=== PATIENT | female | born 1975 | race Caucasian/White ===

== ENCOUNTER 2020-01-16 07:48 | Day surgery (SDC) | payer OTHER ==
[~2020-01-16 07:48] MED LIST: Lactated Ringers 1,000 ML IV SCH
[2020-01-16] MEDS ORDERED: Midazolam 1 MG/ML 2 ML SDV ONE (08:13)
[2020-01-16] MEDS ORDERED: fentaNYL 100 MCG/2 ML SDV ONE (08:13)
[2020-01-16] MEDS ORDERED: Propofol 200 MG/20 ML SDV ONE (08:13)
--- NOTE | 2020-01-16 08:28 | PCM.PREANE ---
Preanesthetic Assessment - Anesthesia/Transfusion/Family Hx Anesthesia History: Prior Anesthesia Without Reaction Family History of Anesthesia Reaction: No Transfusion History: No Prior Transfusion(s) Intubation History: Unknown - Review of Systems General: No Symptoms Pulmonary: No Symptoms Cardiovascular: No Symptoms Gastrointestinal: No Symptoms Neurological: No Symptoms Other: Reports: None - Physical Assessment Height: 5 ft 3.25 in Weight: 69.853 kg ASA Class: 2 Mental Status: Alert & Oriented x3 Airway Class: Mallampati = 2 Dentition: Reports: Normal Dentition, Implants (x2 upper front) Thyro-Mental Finger Breadths: 3 Mouth Opening Finger Breadths: 3 ROM/Head Extension: Full Lungs: Clear to Auscultation, Normal Respiratory Effort Cardiovascular: Regular Rate, Regular Rhythm - Lab Values: Laboratory Last Values WBC 6.54 K/uL (4.0-11.0) 01/16/20 08:16 RBC 4.68 M/uL (4.30-5.90) 01/16/20 08:16 Hgb 12.3 g/dL (12.0-16.0) 01/16/20 08:16 Hct 39.0 % (36.0-46.0) 01/16/20 08:16 MCV 83.3 fL (80.0-98.0) 01/16/20 08:16 MCH 26.3 pg (27.0-32.0) L 01/16/20 08:16 MCHC 31.5 g/dL (31.0-37.0) 01/16/20 08:16 RDW Std Deviation 42.2 fl (28.0-62.0) 01/16/20 08:16 RDW Coeff of Kathleen 14 % (11.0-15.0) 01/16/20 08:16 Plt Count 254 K/uL (150-400) 01/16/20 08:16 MPV 9.30 fL (7.40-12.00) 01/16/20 08:16 Nucleated RBC % 0.0 /100WBC 01/16/20 08:16 Nucleated RBCs # 0 K/uL 01/16/20 08:16 - Allergies Allergies/Adverse Reactions: Allergies Allergy/AdvReac Type Severity Reaction Status Date / Time egg Allergy Abdominal Verified 01/12/20 12:59 Pain - Blood Blood Available: No - Anesthesia Plan Pre-Op Medication Ordered: None - Acknowledgements Anesthesia Type Planned: General Anesthesia Pt an Appropriate Candidate for the Planned Anesthesia: Yes Alternatives and Risks of Anesthesia Discussed w Pt/Guardian: Yes Pt/Guardian Understands and Agrees with Anesthesia Plan: Yes PreAnesthesia Questionnaire HEENT History: Reports: Other (See Below) Other HEENT History: wears glasses/contacts Cardiovascular History: Reports: Other (See Below) Other Cardiovascular History: had a Superficial blood clot in right leg- took aspirin for a period of time Genitourinary History: Reports: Other (See Below) (h/o UTI) 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: Musculoskeletal History: Reports: Fracture Other Musculoskeletal History: left foot Endocrine/Metabolic History: Reports: Diabetes, Gestational, Hypothyroidism - Past Surgical History Head Surgeries/Procedures: Reports: None HEENT Surgical History: Reports: Oral Surgery Other HEENT Surgeries/Procedures: has 2 dental implants GI Surgical History: Reports: Appendectomy Female Surgical History: Reports: Breast Biopsy, Section, Other (See Below) Other Female Surgeries/Procedures: x2, pelvic Laparoscopy Musculoskeletal Surgical History: Reports: ORIF Other Musculoskeletal Surgeries/Procedures:: Left foot- has 2 plates and screws - SUBSTANCE USE Tobacco Use Status *Q: Former Tobacco User Tobacco Use Within Last Twelve Months: Vaping Recreational Drug Use History: No - HOME MEDS Home Medications: Home Meds Levothyroxine [Synthroid] 50 mcg PO QAM 01/12/20 [History] - CURRENT (IN HOUSE) MEDS Current Meds: Current Medications Lactated Ringer's (Ringers, Lactated) 1,000 mls @ 125 mls/hr IV ASDIRECTED JONATHAN Discontinued Medications Fentanyl (Sublimaze) Confirm Administered Dose 100 mcg .ROUTE .STK-MED ONE Stop: 01/16/20 08:14 Midazolam HCl (Versed 1 Mg/Ml) Confirm Administered Dose 2 mg .ROUTE .STK-MED ONE Stop: 01/16/20 08:14 Propofol (Diprivan 20 Ml) Confirm Administered Dose 200 mg .ROUTE .STK-MED ONE Stop: 01/16/20 08:14
[2020-01-16] MEDS ORDERED: Sodium Chloride 0.9% 10 ML SDV IV PRN (08:40)
[2020-01-16] MEDS ORDERED: Sodium Chloride 0.9% 10 ML Syringe FLUSH PRN (08:40)
[2020-01-16] MEDS ORDERED: Sodium Chloride 0.9% 2.5 ML Syringe FLUSH PRN (08:40)
--- NOTE | 2020-01-16 08:48 | PCM.OPNOTE ---
- General Post-Op/Procedure Note Date of Surgery/Procedure: 01/16/20 Operative Procedure(s): Hysteroscopy D & C with removal of endometrial lesion. Endometrial ablation with Lorena Findings: EUA showed normal sized anteverted uterus Hysteroscopy showed small protusion from endometrium into the uterine cavity - appears like a fibroid but may be a polyp Pre Op Diagnosis: Abnormal uterine bleeding secondary to endometrial polyp Post-Op Diagnosis: Abnormal uterine bleeding , possible polyp or fibroid Anesthesia Technique: General ET Tube, General LMA Primary Surgeon: Brijesh Wagner Anesthesia Provider: Blanquita Scott Pathology: Endometrial currettings Endometrial Lesion Fluid Replacement, Intraop: 800 EBL in mLs: 20 Complications: None Condition: Good
[2020-01-16] MEDS ORDERED: Ondansetron 4 MG/2 ML SDV ONE (09:21)
[2020-01-16] MEDS ORDERED: Dexamethasone 4 MG/ML 5 ML MDV ONE (09:29)
[2020-01-16] MEDS ORDERED: Atropine 0.1 MG/ML 10 ML Syringe IVPUSH PRN ×2 (09:45)
[2020-01-16] MEDS ORDERED: Albuterol 0.083% 2.5 MG/3 ML Neb Soln NEB PRN (09:45)
[2020-01-16] MEDS ORDERED: Naloxone 0.4 MG/ML Syringe IVPUSH PRN (09:45)
[2020-01-16] MEDS ORDERED: EPINEPHrine 1:10,000 1 MG/10 ML Syringe IVPUSH PRN (09:45)
[2020-01-16] MEDS ORDERED: fentaNYL 100 MCG/2 ML SDV IVPUSH PRN (09:45)
[2020-01-16] MEDS ORDERED: 50% Dextrose in Water 50 ML Syringe IVPUSH PRN (09:45)
[2020-01-16] MEDS ORDERED: Ondansetron 4 MG/2 ML SDV IVPUSH PRN (09:46)
[2020-01-16] MEDS ORDERED: HYDROmorphone 2 MG/ML Syringe IVPUSH PRN (09:46)
[2020-01-16] MEDS ORDERED: Ketorolac 30 MG/ML SDV ONE (10:06)
[2020-01-16] MEDS ORDERED: Acetaminophen/HYDROcodone 325-5 MG Tab PO PRN (10:44)
--- NOTE | 2020-01-16 10:54 | PCM.POSTAN ---
POST ANESTHESIA ASSESSMENT - MENTAL STATUS Mental Status: Alert, Oriented - VITAL SIGNS Vital Signs: Last Vital Signs Temp 36.3 C 01/16/20 10:25 Pulse 69 01/16/20 10:50 Resp 10 L 01/16/20 10:50 BP 126/63 01/16/20 10:50 Pulse Ox 95 01/16/20 10:50 - RESPIRATORY Respiratory Status: Respiratory Rate WNL, Airway Patent, O2 Saturation Stable - CARDIOVASCULAR CV Status: Pulse Rate WNL, Blood Pressure Stable - GASTROINTESTINAL GI Status: No Symptoms - PAIN Pain Score: 0 - POST OP HYDRATION Hydration Status: Adequate & Stable - OBSERVATIONS Free Text/Narrative:: No anesthesia problems
--- NOTE | 2020-01-16 11:10 | PCM48HPAN ---
Post Anesthesia Note - EVALUATION WITHIN 48HRS OF ANESTHETIC Vital Signs in Normal Range: Yes Patient Participated in Evaluation: Yes Respiratory Function Stable: Yes Airway Patent: Yes Cardiovascular Function Stable: Yes Hydration Status Stable: Yes Pain Control Satisfactory: Yes Nausea and Vomiting Control Satisfactory: Yes Mental Status Recovered: Yes Vital Signs: Last Vital Signs Temp 36.3 C 01/16/20 10:25 Pulse 69 01/16/20 10:50 Resp 10 L 01/16/20 10:50 BP 126/63 01/16/20 10:50 Pulse Ox 95 01/16/20 10:50 - COMMENTS/OBSERVATIONS Free Text/Narrative:: No anesthesia problems
--- NOTE | 2020-01-19 08:26 | OR ---
SURGEON: DAPHNEY ZALDIVAR DATE OF PROCEDURE: 01/16/2020 PREOPERATIVE DIAGNOSES: A 44-year-old with abnormal uterine bleeding secondary to endometrial polyp. POSTOPERATIVE DIAGNOSES: A 44-year-old with abnormal uterine bleeding secondary to endometrial polyp. PROCEDURE: 1. Hysteroscopy. 2. D and C. 3. Removal of endometrial lesion with MyoSure. ESTIMATED BLOOD LOSS: 20 mL. INTRAVENOUS FLUID: 800. FLUID DEFICIT: 420 of normal saline. ANESTHESIA: General. NOTES AND FINDING: Normal-sized anteverted uterus. Hysteroscopy showed a polypoid versus fibroid lesion in the posterior wall of the uterus. DESCRIPTION OF PROCEDURE: The patient was taken to the operating room where general anesthesia was performed without difficulty. She was prepared and draped in the dorsal lithotomy position with Carter stirrups. A speculum was placed into the vagina to expose the cervix. The cervix was grasped with Allis clamp. The cervix was dilated to accommodate the MyoSure hysteroscope. Upon placing the MyoSure hysteroscope, a lesion was noted in the posterior wall of the uterus measuring about 2 cm. With MyoSure been inserted, the lesion was removed without difficulty. Then, the MyoSure was removed. Then, a fractional D and C was done without any difficulty. Fluid deficit was as above. The patient tolerated the procedure well. All instrument and pad counts were correct x2. JERRI / MAYURI /[id number] MTDMarina
== END 2020-01-16 12:40 | disposition home or self-care (01) ==
LOC: MW.SDS 07:48
PROVIDERS: ATTEND Obstetrics & Gynecology
DX: N84.0 Polyp of corpus uteri (principal); Z87.891 Personal history of nicotine dependence; Z91.012 Allergy to eggs
CPT/HCPCS: 36415; 58563; 84703; 85027; 88305; J0131; J1100; J1885; J2001; J2250; J2704; J3010; J7120; 00952; J2405

== ENCOUNTER 2020-05-14 11:25 | Emergency (ER) | payer BC, OTHER ==
[2020-05-14] MEDS ORDERED: Sodium Chloride 0.9% 2.5 ML Syringe FLUSH PRN (11:42)
[2020-05-14] MEDS ORDERED: Sodium Chloride 0.9% 10 ML Syringe FLUSH PRN (11:42)
[2020-05-14 12:14] LABS: BLOOD UREA NITROGEN,BUN 6 mg/dL (7.0-18.0); CARBON DIOXIDE,CO2 25.3 mmol/L (21.0-32.0); CHLORIDE,CL 100 mmol/L (98-107); GLUCOSE RANDOM 112 mg/dL (74-106); LIPASE 125 U/L (73-393); POTASSIUM,K 3.6 mmol/L (3.5-5.1); SODIUM,NA 135 mmol/L (136-145)
[2020-05-14] MEDS ORDERED: Ketorolac 30 MG/ML SDV IVPUSH ONE (12:14)
[2020-05-14] MEDS ORDERED: Ondansetron 4 MG/2 ML SDV IVPUSH ONE (12:14)
[2020-05-14] MEDS ORDERED: Sodium Chloride 0.9% 1,000 ML IV ONE (12:16)
--- NOTE | 2020-05-14 12:22 | EDM.PDOC ---
ED HPI GENERAL MEDICAL PROBLEM - General Chief Complaint: Abdominal Pain Stated Complaint: STOMACH/LEFT PAIN Time Seen by Provider: 05/14/20 11:26 Source of Information: Reports: Patient History Limitations: Reports: No Limitations - History of Present Illness INITIAL COMMENTS - FREE TEXT/NARRATIVE: HISTORY AND PHYSICAL: History of present illness: Patient is a 44-year-old female presenting to the emergency room with left-sided abdominal/flank pain x2 days. Patient states that the pain is worse with taking a deep breath and sitting up. She describes it as stabbing/cramping. Patient also reports intermittent nausea with the pain. She reports taking 800 mg of [id number] ibuprofen last night that helped. Patient's history significant for hyperthyroidism for which she takes levothyroxine. Patient surgical history is significant for endometrial ablation and polyp removal in January 2020, appendectomy at age 18, ovarian torsion, 20 years ago, 2x section. Patient denies fever, chills, chest pain, shortness of breath, or cough. Denies headache, neck stiff ness, change in vision, syncope, or near syncope. Denies nausea, vomiting, diarrhea, constipation, or dysuria. Has not noted any blood in urine or stool. Review of systems: As per history of present illness and below otherwise all systems reviewed and negative. Past medical history: As per history of present illness and as reviewed below otherwise noncontributory. Surgical history: As per history of present illness and as reviewed below otherwise noncontributory. Social history: See social history for further information Family history: As per history of present illness and as reviewed below otherwise noncontributory. Physical exam: General: Patient is alert, oriented, and in no acute distress. Patient laying comfortably on exam table. Vitals stable and reviewed by me. Lungs: Clear to auscultation, breath sounds equal bilaterally, chest nontender. Heart: S1S2, regular rate and rhythm without overt murmur Abdomen: Mild generalized abdominal tenderness with slight increase in discomfort of the left sided abdomen and into the left flank without guarding, negative rebound, negative Caballero sign. Otherwise, soft, nondistended. Negative for masses or hepatosplenomegaly. Negative for costovertebral tenderness. Genitourinary: Deferred. Rectal: Deferred. Skin: Intact, warm, dry. No lesions or rashes noted. Extremities: Atraumatic, negative for cords or calf pain. Neurovascular unremarkable. Neuro: Awake, alert, oriented. Cranial nerves II through XII unremarkable. Cerebellum unremarkable. Motor and sensory unremarkable throughout. Exam nonfocal. Notes: Upon reexamination of patient, she is comfortable on exam and vitally stable. Admission for observation offered to patient but she declines at this time. Signs and symptoms that would prompt return to the ED thoroughly discussed with patient. Discussed the importance for follow up with a primary care provider. Voices understanding and is agreeable to plan of care. Denies any further questions or concerns at this time. Diagnostics: EKG, CBC, CMP, UA, Serum hcg, Lipase, Trop, CXR, Abd/pelvic w/w/o cont, Therapeutics: NS, Zofran, Toradol Prescription: Stool studies/collection supplies (Ova and Parasite, Cdiff tox, Culture/Shiga), Flagyl, Ciprofloxacin Impression: Colitis, unspecified Plan: 1. Take medication as prescribed. You can alternate ibuprofen and Tylenol as directed for pain and discomfort. 2. Follow up with a primary care provider as discussed. Return to the ED as needed and as discussed. 3. You have been provided with stool collection supplies. Once you are able to leave a stool sample at home, you can return this to our lab for further diagnostics. Definitive disposition and diagnosis as appropriate pending reevaluation and review of above. abdomen Pain Score (Numeric/FACES): 7 - Related Data Allergies Allergy/AdvReac Type Severity Reaction Status Date / Time egg Allergy Abdominal Verified 05/14/20 11:40 Pain Home Meds: Home Meds Levothyroxine [Synthroid] 50 mcg PO QAM 01/12/20 [History] Acetaminophen/HYDROcodone [[place] 325-5 MG] 1 tab PO Q6H PRN #8 tablet 05/14/20 [Rx] Ciprofloxacin [Ciprofloxacin HCl] 500 mg PO BID 7 Days #14 tab 05/14/20 [Rx] metroNIDAZOLE [Flagyl] 500 mg PO TID 7 Days #21 tab 05/14/20 [Rx] Past Medical History HEENT History: Reports: Other (See Below) Other HEENT History: wears glasses/contacts Cardiovascular History: Reports: Other (See Below) Other Cardiovascular History: had a Superficial blood clot in right leg- took aspirin for a period of time Genitourinary History: Reports: Other (See Below) (h/o UTI) 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: Musculoskeletal History: Reports: Fracture Other Musculoskeletal History: left foot Endocrine/Metabolic History: Reports: Diabetes, Gestational, Hypothyroidism - Past Surgical History Head Surgeries/Procedures: Reports: None HEENT Surgical History: Reports: Oral Surgery Other HEENT Surgeries/Procedures: has 2 dental implants GI Surgical History: Reports: Appendectomy Female Surgical History: Reports: Breast Biopsy, Section, Other (See Below) Other Female Surgeries/Procedures: x2, pelvic Laparoscopy Musculoskeletal Surgical History: Reports: ORIF Other Musculoskeletal Surgeries/Procedures:: Left foot- has 2 plates and screws ED ROS GENERAL - Review of Systems Review Of Systems: Comprehensive ROS is negative, except as noted in HPI. ED EXAM, GENERAL - Physical Exam Exam: See Below (see dictation) Course - Vital Signs Last Recorded V/S: Last Vital Signs Temp 97.2 F 05/14/20 11:29 Pulse 76 05/14/20 14:37 Resp 16 05/14/20 14:37 BP 110/62 05/14/20 14:37 Pulse Ox 99 05/14/20 14:37 - Orders/Labs/Meds Orders: Active Orders 24 hr Category Date Time Status Saline Lock Insert [OM.PC] Stat Oth 05/14/20 11:42 Ordered Labs: Laboratory Tests 05/14/20 05/14/20 05/14/20 Range/Units 11:38 11:38 11:38 WBC 11.29 H (4.0-11.0) K/uL RBC 4.93 (4.30-5.90) M/uL Hgb 13.7 (12.0-16.0) g/dL Hct 42.3 (36.0-46.0) % MCV 85.8 (80.0-98.0) fL MCH 27.8 (27.0-32.0) pg MCHC 32.4 (31.0-37.0) g/dL RDW Std Deviation 49.6 (28.0-62.0) fl RDW Coeff of Kathleen 16 H (11.0-15.0) % Plt Count 215 (150-400) K/uL MPV 9.50 (7.40-12.00) fL Neut % (Auto) 77.5 (48.0-80.0) % Lymph % (Auto) 13.5 L (16.0-40.0) % Price % (Auto) 8.2 (0.0-15.0) % Eos % (Auto) 0.6 (0.0-7.0) % Baso % (Auto) 0.2 (0.0-1.5) % Neut # (Auto) 8.8 H (1.4-5.7) K/uL Lymph # (Auto) 1.5 (0.6-2.4) K/uL Price # (Auto) 0.9 H (0.0-0.8) K/uL Eos # (Auto) 0.1 (0.0-0.7) K/uL Baso # (Auto) 0.0 (0.0-0.1) K/uL Nucleated RBC % 0.0 /100WBC Nucleated RBCs # 0 K/uL Sodium 135 L (136-145) mmol/L Potassium 3.6 (3.5-5.1) mmol/L Chloride 100 (98-107) mmol/L Carbon Dioxide 25.3 (21.0-32.0) mmol/L BUN 6 L (7.0-18.0) mg/dL Creatinine 0.9 (0.6-1.0) mg/dL Est Cr Clr Drug Dosing 68.88 mL/min Estimated GFR (MDRD) > 60.0 ml/min Glucose 112 H (74-106) mg/dL Calcium 8.4 L (8.5-10.1) mg/dL Total Bilirubin 0.5 (0.2-1.0) mg/dL AST 13 L (15-37) IU/L ALT 19 (14-63) IU/L Alkaline Phosphatase 47 (46-116) U/L Troponin I < 0.050 (0.000-0.056) ng/mL Total Protein 7.2 (6.4-8.2) g/dL Albumin 3.5 (3.4-5.0) g/dL Globulin 3.7 (2.6-4.0) g/dL Albumin/Globulin Ratio 0.9 (0.9-1.6) Lipase 125 (73-393) U/L HCG, Qual NEGATIVE (NEG) Urine Color Urine Appearance Urine pH (5.0-8.0) Ur Specific [place] (1.001-1.035) Urine Protein (NEGATIVE) mg/dL Urine Glucose (UA) (NEGATIVE) mg/dL Urine Ketones (NEGATIVE) mg/dL Urine Occult Blood (NEGATIVE) Urine Nitrite (NEGATIVE) Urine Bilirubin (NEGATIVE) Urine Urobilinogen (<2.0) EU/dL Ur Leukocyte Esterase (NEGATIVE) 05/14/20 Range/Units 12:23 WBC (4.0-11.0) K/uL RBC (4.30-5.90) M/uL Hgb (12.0-16.0) g/dL Hct (36.0-46.0) % MCV (80.0-98.0) fL MCH (27.0-32.0) pg MCHC (31.0-37.0) g/dL RDW Std Deviation (28.0-62.0) fl RDW Coeff of Kathleen (11.0-15.0) % Plt Count (150-400) K/uL MPV (7.40-12.00) fL Neut % (Auto) (48.0-80.0) % Lymph % (Auto) (16.0-40.0) % Price % (Auto) (0.0-15.0) % Eos % (Auto) (0.0-7.0) % Baso % (Auto) (0.0-1.5) % Neut # (Auto) (1.4-5.7) K/uL Lymph # (Auto) (0.6-2.4) K/uL Price # (Auto) (0.0-0.8) K/uL Eos # (Auto) (0.0-0.7) K/uL Baso # (Auto) (0.0-0.1) K/uL Nucleated RBC % /100WBC Nucleated RBCs # K/uL Sodium (136-145) mmol/L Potassium (3.5-5.1) mmol/L Chloride (98-107) mmol/L Carbon Dioxide (21.0-32.0) mmol/L BUN (7.0-18.0) mg/dL Creatinine (0.6-1.0) mg/dL Est Cr Clr Drug Dosing mL/min Estimated GFR (MDRD) ml/min Glucose (74-106) mg/dL Calcium (8.5-10.1) mg/dL Total Bilirubin (0.2-1.0) mg/dL AST (15-37) IU/L ALT (14-63) IU/L Alkaline Phosphatase (46-116) U/L Troponin I (0.000-0.056) ng/mL Total Protein (6.4-8.2) g/dL Albumin (3.4-5.0) g/dL Globulin (2.6-4.0) g/dL Albumin/Globulin Ratio (0.9-1.6) Lipase (73-393) U/L HCG, Qual (NEG) Urine Color YELLOW Urine Appearance CLEAR Urine pH 7.0 (5.0-8.0) Ur Specific [place] <= 1.005 (1.001-1.035) Urine Protein NEGATIVE (NEGATIVE) mg/dL Urine Glucose (UA) NEGATIVE (NEGATIVE) mg/dL Urine Ketones TRACE H (NEGATIVE) mg/dL Urine Occult Blood NEGATIVE (NEGATIVE) Urine Nitrite NEGATIVE (NEGATIVE) Urine Bilirubin NEGATIVE (NEGATIVE) Urine Urobilinogen 0.2 (<2.0) EU/dL Ur Leukocyte Esterase NEGATIVE (NEGATIVE) Meds: Medications Discontinued Medications Generic Name Dose Route Start Last Admin Trade Name Freq PRN Reason Stop Dose Admin Sodium Chloride 1,000 mls @ 999 mls/hr 05/14/20 12:16 05/14/20 12:27 Normal Saline IV 05/14/20 13:16 999 mls/hr STAT ONE Administration Iopamidol 100 ml 05/14/20 13:15 05/14/20 13:16 Isovue Multipack-370 (76%) IVPUSH 05/14/20 13:16 100 ml ONETIME ONE Administration Ketorolac Tromethamine 30 mg 05/14/20 12:14 05/14/20 12:27 Toradol IVPUSH 05/14/20 12:15 30 mg ONETIME ONE Administration Ondansetron HCl 4 mg 05/14/20 12:14 05/14/20 12:27 Zofran IVPUSH 05/14/20 12:15 4 mg ONETIME ONE Administration Sodium Chloride 10 ml 05/14/20 11:42 05/14/20 12:28 Saline Flush FLUSH 10 ml ASDIRECTED PRN Administration Keep Vein Open Sodium Chloride 2.5 ml 05/14/20 11:42 05/14/20 12:28 Saline Flush FLUSH 2.5 ml ASDIRECTED PRN Administration Keep Vein Open Departure - Departure Time of Disposition: 10:32 Disposition: Home, Self-Care 01 Clinical Impression: Colitis - Discharge Information Prescriptions: Ciprofloxacin [Ciprofloxacin HCl] 500 mg PO BID 7 Days #14 tab metroNIDAZOLE [Flagyl] 500 mg PO TID 7 Days #21 tab Acetaminophen/HYDROcodone [[place] 325-5 MG] 1 tab PO Q6H PRN #8 tablet PRN Reason: Pain (Severe 7-10) Instructions: Colitis Referrals: Rosa Walker MD [Primary Care Provider] - Forms: ED Department Discharge Additional Instructions: The following information is given to patients seen in the emergency department who are being discharged to home. This information is to outline your options for follow-up care. We provide all patients seen in our emergency department with a follow-up referral. The need for follow-up, as well as the timing and circumstances, are variable depending upon the specifics of your emergency department visit. If you don't have a primary care physician on staff, we will provide you with a referral. We always advise you to contact your personal physician following an emergency department visit to inform them of the circumstance of the visit and for follow-up with them and/or the need for any referrals to a consulting specialist. The emergency department will also refer you to a specialist when appropriate. This referral assures that you have the opportunity for follow-up care with a specialist. All of these measure are taken in an effort to provide you with optimal care, which includes your follow-up. Under all circumstances we always encourage you to contact your private phys ician who remains a resource for coordinating your care. When calling for follow-up care, please make the office aware that this follow-up is from your recent emergency room visit. If for any reason you are refused follow-up, please contact the [facility] Emergency Department at and asked to speak to the emergency department charge nurse. [facility] [address] [place] [id number] [address] [id number] 1. Take medication as prescribed. You can alternate ibuprofen and Tylenol as directed for pain and discomfort. 2. Follow up with a primary care provider as discussed. Return to the ED as needed and as discussed. 3. You have been provided with stool collection supplies. Once you are able to leave a stool sample at home, you can return this to our lab for further diagnostics. Sepsis Event Note (ED) - Evaluation Sepsis Screening Result: No Definite Risk - My Orders Last 24 Hours: My Active Orders 05/14/20 11:42 Saline Lock Insert [OM.PC] Stat - Assessment/Plan Last 24 Hours: My Active Orders 05/14/20 11:42 Saline Lock Insert [OM.PC] Stat
--- NOTE | 2020-05-14 12:55 | CR ---
INDICATION: Pain/shortness of breath. TECHNIQUE: Chest 1 view. COMPARISON: None. FINDINGS: No focal consolidation, pleural effusion, or pneumothorax. Normal heart size and pulmonary vascularity. The bones are unremarkable. IMPRESSION: No acute cardiopulmonary findings. Dictated by Elizabeth Santana MD @ May 14 2020 12:53PM Signed by Dr. Elizabeth Santana @ May 14 2020 12:54PM
[2020-05-14] MEDS ORDERED: Iopamidol 755 MG/ML 500 ML Multipack Bottle IVPUSH ONE (13:15)
--- NOTE | 2020-05-14 13:39 | CT ---
Indication : Left flank pain and abdominal pain Technique: Volumetric multidetector CT images of the abdomen and pelvis were obtained before and after the administration of intravenous contrast. 100 cc Isovue 370 low osmolar intravenous contrast Comparison: None available. Findings: There is minimal basilar atelectasis versus scar. The liver is normal in attenuation without intrahepatic biliary ductal dilatation. The portal vein is patent. The gallbladder is unremarkable without evidence of radiopaque calculus. There is no significant common biliary ductal dilatation or abrupt cut off. The spleen is normal in enhancement and size. The stomach and duodenum are grossly unremarkable. The pancreas is normal in enhancement without significant atrophy. The adrenal glands are unremarkable. The kidneys demonstrate preserved corticomedullary differentiation without evidence of obstructive uropathy. There is moderate stool seen throughout the colon with demonstration of focal segmental thickening and pericolonic inflammatory change of the splenic flexure likely representing mild colitis changes. The appendix is not well visualized. There is no significant mesenteric, retroperitoneal, or pelvic sidewall lymph nodes. The aorta is nonaneurysmal. There is no significant atherosclerotic disease appreciated. There is an involuting left ovarian follicle and minimal physiologic fluid within the pelvis. There is no free fluid or free air. There is a small fat containing umbilical hernia. The lumbar vertebral body heights are grossly maintained in satisfactory alignment without evidence of displaced fracture, lytic or blastic lesion. Impression: Demonstration of focal segmental thickening and pericolonic inflammation of the transverse colon at the splenic flexure consistent with colitis. No evidence of radiopaque calculus or distal obstructive uropathy. There are additional scattered air-fluid levels within the small bowel which could represent mild enteritis changes. Please note that all CT scans at this facility use dose modulation, iterative reconstruction, and/or weight-based dosing when appropriate to reduce radiation dose to as low as reasonably achievable. Dictated by Brandon Kidd MD @ May 14 2020 1:25PM Signed by Dr. Brandon Kidd @ May 14 2020 1:39PM
--- NOTE | 2020-05-15 18:37 | PCM.EKG ---
#1 Interpretation EKG Date: 05/14/20 Time: 12:12 Rhythm: NSR Rate (Beats/Min): 81 [place]: Normal P-Wave: Present QRS: Normal ST-T: Normal QT: Normal Comparison: NA - No Prior EKG (Sinus Rhythm)
== END 2020-05-14 14:40 | disposition home or self-care (01) ==
LOC: MW.ED 11:25
DX: K52.9 Noninfective gastroenteritis and colitis, unspecified (principal); E03.9 Hypothyroidism, unspecified; Z91.012 Allergy to eggs; Z79.899 Other long term (current) drug therapy
CPT/HCPCS: 71045; 74178; 80053; 81003; 83690; 84484; 84703; 85025; 93005; 96374; 96375; 99284; J1885; J2405; J7030; Q9967; 93010

== ENCOUNTER 2020-07-22 06:22 | Day surgery (SDC) | payer BC ==
[~2020-07-22 06:22] MED LIST changes: +Sodium Chloride 0.9% 10 ML SDV IV PRN; +Sodium Chloride 0.9% 10 ML Syringe FLUSH PRN; +Sodium Chloride 0.9% 2.5 ML Syringe FLUSH PRN
[2020-07-22] MEDS ORDERED: Propofol 200 MG/20 ML SDV ONE (06:56)
--- NOTE | 2020-07-22 07:11 | PCM.PREANE ---
Preanesthetic Assessment - Anesthesia/Transfusion/Family Hx Anesthesia History: Prior Anesthesia Without Reaction Family History of Anesthesia Reaction: No Transfusion History: No Prior Transfusion(s) Intubation History: Unknown - Review of Systems General: No Symptoms Pulmonary: No Symptoms Cardiovascular: No Symptoms Gastrointestinal: No Symptoms Neurological: No Symptoms Other: Reports: None - Physical Assessment NPO Status Date: 07/22/20 NPO Status Time: 00:01 Vital Signs: Last Vital Signs Temp 97.3 F 07/22/20 06:48 Pulse 78 07/22/20 06:48 Resp 16 07/22/20 06:48 BP 103/55 L 07/22/20 06:48 Pulse Ox 98 07/22/20 06:48 Height: 5 ft 4 in Weight: 150 lb ASA Class: 1 Mental Status: Alert & Oriented x3 Airway Class: Mallampati = 2 Dentition: Reports: Normal Dentition, Implants ROM/Head Extension: Full Lungs: Clear to Auscultation, Normal Respiratory Effort Cardiovascular: Regular Rate, Regular Rhythm - Lab Values: Laboratory Last Values Urine HCG, Qual NEGATIVE (NEGATIVE) 07/22/20 06:45 - Allergies Allergies/Adverse Reactions: Allergies Allergy/AdvReac Type Severity Reaction Status Date / Time egg Allergy Abdominal Verified 07/22/20 07:03 Pain - Anesthesia Plan Pre-Op Medication Ordered: None - Acknowledgements Anesthesia Type Planned: General Anesthesia Pt an Appropriate Candidate for the Planned Anesthesia: Yes Alternatives and Risks of Anesthesia Discussed w Pt/Guardian: Yes Additional Comments: npo no cv problems tob none etoh occ par no questions bmi 26 upper incisor implants PreAnesthesia Questionnaire HEENT History: Reports: Other (See Below) Other HEENT History: wears glasses/contacts Cardiovascular History: Reports: Other (See Below) Other Cardiovascular History: had a Superficial blood clot in right leg- took aspirin for a period of time Respiratory History: Reports: None Gastrointestinal History: Reports: Chronic Constipation, Other (See Below) Other Gastrointestinal History: hx of colitis, currently having abd pain Genitourinary History: Reports: None [employer]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: Musculoskeletal History: Reports: Fracture Other Musculoskeletal History: left foot Neurological History: Reports: None Psychiatric History: Reports: None Endocrine/Metabolic History: Reports: Diabetes, Gestational, Hypothyroidism Hematologic History: Reports: None Immunologic History: Reports: None Oncologic (Cancer) History: Reports: None Dermatologic History: Reports: None - Infectious Disease History Infectious Disease History: Reports: Chicken Pox - Past Surgical History Head Surgeries/Procedures: Reports: None HEENT Surgical History: Reports: Oral Surgery Other HEENT Surgeries/Procedures: has 2 dental implants GI Surgical History: Reports: Appendectomy Female Surgical History: Reports: Breast Biopsy, Section, Cystect irish, Endometrial Ablation, Other (See Below) Other Female Surgeries/Procedures: x2, pelvic Laparoscopy Endocrine Surgical History: Reports: None Neurological Surgical History: Reports: None Musculoskeletal Surgical History: Reports: ORIF Other Musculoskeletal Surgeries/Procedures:: Left foot- has 2 plates and screws - SUBSTANCE USE Tobacco Use Status *Q: Current Every Day Tobacco User Tobacco Use Within Last Twelve Months: Vaping Recreational Drug Use History: No - HOME MEDS Home Medications: Home Meds Levothyroxine [Synthroid] 50 mcg PO QAM 01/12/20 [History] L.acidoph,Paracasei, B.lactis [Probiotic] 1 cap PO DAILY 07/16/20 [History] - CURRENT (IN HOUSE) MEDS Current Meds: Current Medications Lactated Ringer's (Ringers, Lactated) 1,000 mls @ 125 mls/hr IV ASDIRECTED JONATHAN Last Admin: 07/22/20 06:57 Dose: 125 mls/hr Documented by: Sodium Chloride (Sodium Chloride 0.9% 10 Ml Syringe) 10 ml FLUSH ASDIRECTED PRN PRN Reason: Keep Vein Open Sodium Chloride (Sodium Chloride 0.9% 2.5 Ml Syringe) 2.5 ml FLUSH ASDIRECTED PRN PRN Reason: Keep Vein Open Sodium Chloride (Sodium Chloride 0.9% 10 Ml Syringe) 10 ml FLUSH ASDIRECTED PRN PRN Reason: Keep Vein Open Sodium Chloride (Sodium Chloride 0.9% 2.5 Ml Syringe) 2.5 ml FLUSH ASDIRECTED PRN PRN Reason: Keep Vein Open Sodium Chloride (Sodium Chloride 0.9% 10 Ml Sdv) 10 ml IV ASDIRECTED PRN PRN Reason: IV Use Discontinued Medications Propofol (Propofol 200 Mg/20 Ml Sdv) Confirm Administered Dose 400 mg .ROUTE .STK-MED ONE Stop: 07/22/20 06:57
--- NOTE | 2020-07-22 08:54 | PCM.OPNOTE ---
- General Post-Op/Procedure Note Date of Surgery/Procedure: 07/22/20 Operative Procedure(s): Diagnostic EGD and colonoscopy Findings: Normal appearing EGD and colonoscopy Pre Op Diagnosis: Colitis and non-specific small intestine thickening Post-Op Diagnosis: same Anesthesia Technique: MAC Primary Surgeon: Mary Tim Condition: Good
--- NOTE | 2020-07-22 09:10 | PCM.POSTAN ---
POST ANESTHESIA ASSESSMENT - MENTAL STATUS Mental Status: Alert (no anesthetic problems), Oriented - VITAL SIGNS Vital Signs: Last Vital Signs Temp 97.3 F 07/22/20 06:48 Pulse 53 L 07/22/20 09:03 Resp 14 07/22/20 09:03 BP 102/63 07/22/20 09:03 Pulse Ox 100 07/22/20 09:03 - RESPIRATORY Respiratory Status: Respiratory Rate WNL, Airway Patent, O2 Saturation Stable - CARDIOVASCULAR CV Status: Pulse Rate WNL, Blood Pressure Stable - GASTROINTESTINAL GI Status: No Symptoms - POST OP HYDRATION Hydration Status: Adequate & Stable
--- NOTE | 2020-07-22 09:17 | PCM48HPAN ---
Post Anesthesia Note - EVALUATION WITHIN 48HRS OF ANESTHETIC Vital Signs in Normal Range: Yes Patient Participated in Evaluation: Yes Respiratory Function Stable: Yes Airway Patent: Yes Cardiovascular Function Stable: Yes Hydration Status Stable: Yes Pain Control Satisfactory: Yes Nausea and Vomiting Control Satisfactory: Yes Mental Status Recovered: Yes Vital Signs: Last Vital Signs Temp 97.3 F 07/22/20 06:48 Pulse 53 L 07/22/20 09:03 Resp 14 07/22/20 09:03 BP 102/63 07/22/20 09:03 Pulse Ox 100 07/22/20 09:03
--- NOTE | 2020-07-23 19:49 | OR ---
SURGEON: CEDRICK SEGURA MD DATE OF PROCEDURE: 07/22/2020 PREOPERATIVE DIAGNOSES: The patient is a 45-year-old female who presented to my clinic with colitis. She was diagnosed at the end of May. Her scan showed mild inflammation along the splenic flexure. She was also noted to have diverticulosis. She came to see me in clinic for followup and had recurrent symptoms. A repeat CT scan was performed. This showed nonspecific thickening of the distal duodenum and proximal ileum along the upper abdomen. The patient recently underwent a small- bowel follow-through, which was normal other than some mild reflux. The patient developed abdominal cramping after the small bowel procedure. Today, she is feeling back to normal. I explained the need for diagnostic esophagogastroduodenoscopy and colonoscopy. I explained the procedure, expected perioperative course, and risks. The patient verbalized understanding and wishes to proceed. PROCEDURE IN DETAIL: The patient was brought to the endoscopy suite and placed in a left lateral decubitus position. A time-out was completed verifying the patient's name, age, date of , allergies, and procedure to be performed. A bite block was placed in the patient's mouth. Monitored anesthesia care was induced and continuous oxygen was provided via nasal cannula throughout the procedure. After adequate sedation was achieved, a well-lubricated endoscope was placed in the patient's mouth and advanced under direct visualization to the level of the second portion of duodenum. This appeared normal. A photograph taken. The scope was then fully withdrawn while examining the color, texture, anatomy, and integrity mucosa of the upper GI tract. The duodenum appeared normal. Biopsies were taken within the duodenal bulb and sent to Pathology, labeled as duodenal biopsy. The scope was brought into the stomach, and a photograph taken of the pylorus and GE junction. Both appeared anatomically normal. There was no evidence of gross ulceration or inflammation of the stomach. Biopsies were taken of the gastric antrum, body, and fundus and sent for histologic review and H. pylori testing. The scope was brought into the distal esophagus. This appeared normal, and a photograph was taken. Biopsy was taken 1 cm above the normal-appearing Z-line and sent to Pathology, labeled as esophagus. The remainder of the esophagus was free of pathology. The scope was removed, and this portion of procedure terminated. A digital rectal exam was performed. This exam was within normal limits. A well-lubricated colonoscope was inserted per rectum and advanced under direct visualization to the level of the cecum. The cecum was identified by both visual and anatomic landmarks. A photograph was taken of cecal cap; however, I was unable to retroflex the scope within the cecum due to looping of the scope more proximally. I was, however, able to get a good look at the terminal ileum. This appeared normal. The scope was then fully withdrawn while examining the color, texture, anatomy, and integrity of the mucosa from the cecum to the anal canal. The patient was noted to have diverticulosis in the colon. There was no evidence of inflammation or ulceration on any of the colonic mucosa. Random biopsies were taken of the cecum, ascending colon, transverse colon, descending colon, the splenic flexure, the sigmoid colon, and the rectum and sent to Pathology for histologic review. The scope was retroflexed within the rectum to allow visualization of the anal canal opening. This appeared normal, and a photograph taken. The scope was then straightened out and fully withdrawn. The cecum to anus time was 9 minutes. The patient tolerated the procedure well and was transferred to the PACU in stable condition. ENDOSCOPIC DIAGNOSES: 1. History of colitis and duodenitis. 2. Diverticulosis. RECOMMENDATIONS: Follow up in clinic in 2 weeks to discuss her biopsy results and any further steps in treatment. ERNESTINE MESSINA /[id number]
== END 2020-07-22 09:23 | disposition home or self-care (01) ==
LOC: MW.SDS 06:22
PROVIDERS: ATTEND Surgery
DX: K52.89 Other specified noninfective gastroenteritis and colitis (principal); K57.30 Diverticulosis of large intestine without perforation or abscess without bleeding; K63.89 Other specified diseases of intestine; E03.9 Hypothyroidism, unspecified; R73.03 Prediabetes; E66.3 Overweight; Z68.26 Body mass index [BMI] 26.0-26.9, adult; Z91.012 Allergy to eggs; Z79.890 Hormone replacement therapy; Z87.891 Personal history of nicotine dependence
CPT/HCPCS: 00813; 81025; 88305; 88312; J2704; J7120

== ENCOUNTER 2025-01-17 08:48 | Emergency (ER) | payer BC ==
[2025-01-17 09:19] LABS: BASOPHILS ABSOLUTE AUTO 0.03 K/uL (0.00-0.20); BASOPHILS PERCENT AUTO 0.4 % (0.0-1.0); EOSINOPHILS ABSOLUTE AUTO 0.20 K/uL (0.00-0.45); EOSINOPHILS PERCENT AUTO 2.7 % (0.0-6.0); IMMATURE GRAN ABSOLUTE AUTO 0.01 K/uL (0.00-0.05); IMMATURE GRAN PERCENT AUTO 0.1 % (0.0-0.4); LYMPHOCYTES ABSOLUTE AUTO 1.26 K/uL (1.00-4.80); LYMPHOCYTES PERCENT AUTO 17.3 % (24.0-44.0); MEAN PLATELET VOLUME 8.9 fL (9.4-12.3); MONOCYTES ABSOLUTE AUTO 0.48 K/uL (0.00-0.80); MONOCYTES PERCENT AUTO 6.6 % (0.0-8.0); NEUTROPHILS ABSOLUTE AUTO 5.32 K/uL (1.80-7.70); NEUTROPHILS PERCENT AUTO 72.9 % (41.0-71.0); NRBC ABSOLUTE 0.00 K/uL (0.00-0.02); NRBC PERCENT 0.0 /100WBC (0.0-0.2); PLATELET COUNT,PLT 232 K/uL (150-400); RED BLOOD CELL COUNT 4.66 M/uL (4.10-5.30); WHITE BLOOD CELL COUNT,WBC 7.30 K/uL (3.9-11.3)
[2025-01-17] MEDS: Ondansetron 4 MG/2 ML SDV IVPUSH ONE (09:27)
[2025-01-17 09:44] LABS: A/G RATIO 1.1 (0.9-1.6); ALANINE AMINOTRANSFERASE,ALT 17.0 IU/L (14-63); ASPARTATE AMNIOTRANSFERASE,AST 12.0 IU/L (15-37); BILIRUBIN TOTAL 0.2 mg/dL (0.2-1.0); BLOOD UREA NITROGEN,BUN 16.0 mg/dL (7.0-18.0); CARBON DIOXIDE,CO2 25.5 mmol/L (21.0-32.0); CHLORIDE,CL 105.0 mmol/L (98-107); CREATININE 0.9 mg/dL (0.6-1.0); EST CRCL DRUG DOSING (CG) 54.31 mL/min; GLUCOSE RANDOM 111.0 mg/dL (74-106); POTASSIUM,K 4.4 mmol/L (3.5-5.1); PROTEIN TOTAL,TP 6.1 g/dL (6.4-8.2); SODIUM,NA 140.0 mmol/L (136-145)
[2025-01-17] MEDS: Iopamidol 755 Mg/ML 100 ML Bottle IVPUSH ONE (09:46)
[2025-01-17 09:51] LABS: ESTIMATED GFR 78.0 mL/min (>60)
[2025-01-17 10:49] LABS: APPEARANCE,URINE CLEAR; GLUCOSE,URINE NEGATIVE (NEGATIVE); OCCULT BLOOD,URINE NEGATIVE (NEGATIVE)
[2025-01-17] MEDS: Ketorolac 30 MG/ML SDV IVPUSH ONE (12:49)
== END 2025-01-17 14:36 | disposition home or self-care (01) ==
LOC: MW.ED 08:48
DX: D25.1 Intramural leiomyoma of uterus (principal); E03.9 Hypothyroidism, unspecified; Z79.899 Other long term (current) drug therapy; Z79.890 Hormone replacement therapy; Z90.49 Acquired absence of other specified parts of digestive tract
CPT/HCPCS: 36415; 74177; 76856; 80053; 81003; 83605; 83690; 85025; 96361; 96374; 96375; 99284; J1885; J2405; J7030; Q9967; 99283